=== PATIENT | male | born 1985 | race Two or more races ===

== ENCOUNTER 2018-09-03 21:20 | Emergency (ER) | payer SELFPAY ==
[2018-09-03 21:33] VITALS: BP 127/73; PULSE 90; TEMP 98; BMI 23.5
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
[2018-09-03] MEDS ORDERED: ACETAMINOPHEN 325 MG TABLET (FP) PO ONE (22:13)
[2018-09-03] MEDS ORDERED: ACETAMINOPHEN 325 MG TABLET (FP) ONE (22:15)
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
[2018-09-04] MEDS ORDERED: IBUPROFEN 400 MG TABLET (FP) PO ONE ×2 (00:18→00:25)
== END 2018-09-04 00:35 ==
LOC: JER 21:20
DX: S00.12XA Contusion of left eyelid and periocular area, initial encounter (principal); Y04.2XXA Assault by strike against or bumped into by another person, initial encounter; Y93.89 Activity, other specified; Y92.414 Local residential or business street as the place of occurrence of the external cause; Y99.8 Other external cause status; Y07.6 Multiple perpetrators of maltreatment and neglect
CPT/HCPCS: 70450-TC; 70486-TC; 72125-TC; 99281-25